=== PATIENT | female | born 1980 | race African-American/Black ===

== ENCOUNTER 2017-02-11 08:12 | Emergency (ER) | payer BC ==
[~2017-02-11] VITALS: Ht 170.2 cm; Wt 92.1 kg
[~2017-02-11 08:12] MED LIST: BENADRYL25 MG PO; MEDROLDOSEPACK PO; PEPCID20 MG PO; PREDNISONE 5 MG5 M1 PO
[2017-02-11] MEDS ORDERED: IBUPROFEN 600600 M1 PO (09:27)
[2017-02-11] MEDS ORDERED: METOPROLOL TART25 MG PO (09:28)
[2017-02-11 09:56] VITALS: BP 140/100
== END 2017-02-11 09:58 | disposition home or self-care (01) ==
LOC: ER 08:12
DX: S16.1XXA Strain of muscle, fascia and tendon at neck level, initial encounter (principal); I10 Essential (primary) hypertension; Z91.013 Allergy to seafood; F10.99 Alcohol use, unspecified with unspecified alcohol-induced disorder; V89.2XXA Person injured in unspecified motor-vehicle accident, traffic, initial encounter; Y93.89 Activity, other specified; Y92.89 Other specified places as the place of occurrence of the external cause; Y99.8 Other external cause status